=== PATIENT | female | born 1935 | race Caucasian/White ===

== ENCOUNTER 2017-09-11 05:09 | Observation (INO) | payer OTHER ==
[2017-09-11] MEDS ORDERED: NACL 0.9% 3 ML SYG IV (07:30)
[2017-09-11 07:54] LABS: ADD MAN DIFF? NO
[2017-09-11 07:58] LABS: BASOPHIL # 0.1 10^3/ul (0.0-0.1); BASOPHILS % 0.9 % (0.0-2.0); EOSINOPHILS # 0.1 10^3/ul (0.0-0.5); HEMATOCRIT 34.3 % (37.0-47.0); HEMOGLOBIN 11.4 g/dl (12.0-16.0); LYMPHOCYTES # 2.2 10^3/ul (0.8-2.9); LYMPHOCYTES % 32.8 % (15.0-51.0); MEAN CORPUSCULAR HEMOGLOBIN 29.3 pg (29.0-33.0); MEAN CORPUSCULAR HGB CONC 33.2 g/dl (32.0-37.0); MEAN CORPUSCULAR VOLUME 88.2 fl (82.0-101.0); MEAN PLATELET VOLUME 10.1 fl (7.4-10.4); MONOCYTE # 0.6 10^3/ul (0.3-0.9); MONOCYTES % 8.1 % (0.0-11.0); NEUTROPHIL # 3.9 10^3/ul (1.6-7.5); NEUTROPHILS % 57.1 % (39.0-77.0); PLATELET COUNT 376 10^3/UL (140-415); RED BLOOD COUNT 3.89 10^6/ul (4.20-5.40); RED CELL DISTRIBUTION WIDTH 11.9 % (11.5-14.5)
[2017-09-11 07:58] LABS: WHITE BLOOD COUNT 6.8 10^3/ul (4.8-10.8)
[2017-09-11] MEDS ORDERED: DEXTROSE 50% 50 ML SYRINGE IV ×2 (08:00)
[2017-09-11] MEDS ORDERED: GLUCAGON 1 MG INJ IM (08:00)
[2017-09-11] MEDS ORDERED: GLUCOSE GEL 15 GRAM TUBE PO ×2 (08:00)
[2017-09-11] MEDS ORDERED: GLUCOSE GEL 15 GRAM TUBE BUCCAL (08:00)
[2017-09-11 08:19] LABS: ALANINE AMINOTRANSFERASE 14 IU/L (13-69); ALBUMIN 3.8 g/dl (3.3-4.9); ALBUMIN/GLOBULIN RATIO 1.22; ALKALINE PHOSPHATASE 149 IU/L (42-121); ANION GAP 11 (8-16); ASPARTATE AMINO TRANSFERASE 18 IU/L (15-46); BILIRUBIN,INDIRECT 0.4 mg/dl (0-1.1); BILIRUBIN,TOTAL 0.4 mg/dl (0.2-1.3); BLOOD UREA NITROGEN 36 mg/dl (7-20); CALCIUM 9.7 mg/dl (8.4-10.2); CARBON DIOXIDE 29 mmol/L (21-31); CHLORIDE 109 mmol/L (97-110); CREATININE 1.07 mg/dl (0.44-1.00); GLUCOSE 130 mg/dl (70-220); POTASSIUM 4.3 mmol/L (3.5-5.1); SODIUM 145 mmol/L (135-144); TOTAL PROTEIN 6.9 g/dl (6.1-8.1)
[2017-09-11 08:45] LABS: HEMOGLOBIN A1C 6.7 % (0-5.9)
[2017-09-11] MEDS: ASPIRIN 81 MG TAB PO (08:52)
[2017-09-11] MEDS: metFORMIN 500 MG TAB PO ×2 (08:53→17:23)
[2017-09-11] MEDS: AMLODIPINE 10 MG TAB PO (08:53)
[2017-09-11] MEDS: LISINOPRIL 20 MG TAB PO (08:53)
[2017-09-11] MEDS: ENOXAPARIN 40 MG/0.4 ML SYG SC (08:54)
[2017-09-11] MEDS: HYDROCHLOROTHIAZIDE 25 MG TAB PO (08:54)
[2017-09-11] MEDS: NORTRIPTYLINE 10 MG CAP PO (20:28)
[2017-09-11] MEDS: ATORVASTATIN 10 MG TAB PO (20:28)
[2017-09-12 07:08] LABS: ADD MAN DIFF? NO
[2017-09-12] MEDS: LEVOTHYROXINE 50 MCG TAB PO (07:08)
[2017-09-12 07:22] LABS: BASOPHIL # 0.1 10^3/ul (0.0-0.1); BASOPHILS % 1.2 % (0.0-2.0); EOSINOPHILS # 0.1 10^3/ul (0.0-0.5); EOSINOPHILS % 1.5 % (0.0-7.0); HEMATOCRIT 33.2 % (37.0-47.0); HEMOGLOBIN 10.8 g/dl (12.0-16.0); LYMPHOCYTES # 3.2 10^3/ul (0.8-2.9); LYMPHOCYTES % 46.5 % (15.0-51.0); MEAN CORPUSCULAR HGB CONC 32.5 g/dl (32.0-37.0); MEAN PLATELET VOLUME 10.5 fl (7.4-10.4); MONOCYTE # 0.7 10^3/ul (0.3-0.9); MONOCYTES % 9.9 % (0.0-11.0); NEUTROPHIL # 2.8 10^3/ul (1.6-7.5); NEUTROPHILS % 40.8 % (39.0-77.0); PLATELET COUNT 355 10^3/UL (140-415); RED BLOOD COUNT 3.73 10^6/ul (4.20-5.40); RED CELL DISTRIBUTION WIDTH 11.9 % (11.5-14.5)
[2017-09-12 07:22] LABS: WHITE BLOOD COUNT 6.8 10^3/ul (4.8-10.8)
[2017-09-12 07:52] LABS: CHOL/HDL RATIO 4.3 RATIO; CHOLESTEROL 202 mg/dl (100-200); HDL CHOLESTEROL 46 mg/dl (33-92); LDL CHOLESTEROL,CALCULATED 120 mg/dl; MAGNESIUM 1.9 mg/dl (1.7-2.5); TRIGLYCERIDES 178 mg/dl (0-149)
[2017-09-12 07:52] LABS: PHOSPHORUS 4.3 mg/dl (2.5-4.9)
[2017-09-12 07:53] LABS: ALANINE AMINOTRANSFERASE 23 IU/L (13-69); ALBUMIN 3.5 g/dl (3.3-4.9); ALBUMIN/GLOBULIN RATIO 1.34; ALKALINE PHOSPHATASE 128 IU/L (42-121); ANION GAP 14 (8-16); ASPARTATE AMINO TRANSFERASE 14 IU/L (15-46); BILIRUBIN,INDIRECT 0.3 mg/dl (0-1.1); BILIRUBIN,TOTAL 0.3 mg/dl (0.2-1.3); BLOOD UREA NITROGEN 39 mg/dl (7-20); CALCIUM 9.5 mg/dl (8.4-10.2); CARBON DIOXIDE 29 mmol/L (21-31); CHLORIDE 106 mmol/L (97-110); CREATININE 1.18 mg/dl (0.44-1.00); GLUCOSE 113 mg/dl (70-220); POTASSIUM 4.6 mmol/L (3.5-5.1); SODIUM 144 mmol/L (135-144); TOTAL PROTEIN 6.1 g/dl (6.1-8.1)
[2017-09-12] MEDS: metFORMIN 500 MG TAB PO ×2 (08:42→17:14)
[2017-09-12] MEDS: AMLODIPINE 10 MG TAB PO (08:43)
[2017-09-12] MEDS: HYDROCHLOROTHIAZIDE 25 MG TAB PO (08:43)
[2017-09-12] MEDS: LISINOPRIL 20 MG TAB PO (08:43)
[2017-09-12] MEDS: ASPIRIN 81 MG TAB PO (08:43)
[2017-09-12] MEDS: ENOXAPARIN 40 MG/0.4 ML SYG SC (08:48)
[2017-09-12] MEDS: NIFEdipine (XL) 60 MG TAB PO (15:01)
[2017-09-12] MEDS: ATORVASTATIN 10 MG TAB PO (20:14)
[2017-09-12] MEDS: NORTRIPTYLINE 10 MG CAP PO (20:14)
== END 2017-09-12 20:26 | disposition home or self-care (01) ==
LOC: MS4 05:09
DX: I16.0 Hypertensive urgency (principal); I10 Essential (primary) hypertension; E11.9 Type 2 diabetes mellitus without complications; E03.9 Hypothyroidism, unspecified
CPT/HCPCS: 80053; 80061; 83036; 83735; 84100; 84439; 84443; 85025; 99217; G0378